=== PATIENT | female | born 1955 | race African-American/Black ===

== ENCOUNTER 2021-05-06 06:42 | Inpatient (IN) | payer MEDICARE ==
[2021-05-03 09:11] LABS: BASOPHILS % 0.5 % (0.0-1.0); EOSINOPHILS # (AUTO) 0.1 (0.0-0.4); EOSINOPHILS % 2.2 % (0.0-6.0); HEMATOCRIT 35.7 % (34.2-44.1); HEMOGLOBIN 10.8 g/dL (12.0-16.0); LYMPHOCYTES # (AUTO) 1.9 (1.0-3.2); LYMPHOCYTES % 29.4 % (18.0-39.1); MEAN CORPUSCULAR HEMOGLOBIN 29.6 pg (28-32); MEAN CORPUSCULAR HGB CONC 30.3 g/dL (31-35); MEAN CORPUSCULAR VOLUME 97.8 fL (81-99); MONOCYTES # (AUTO) 0.5 (0.2-0.8); MONOCYTES % 8.2 % (4.4-11.3); NEUTROPHILS # (AUTO) 3.8 (2.1-6.9); NEUTROPHILS % 59.2 % (38.7-80.0); PLATELET COUNT 232 x10e3/uL (140-360); RED BLOOD COUNT 3.65 x10e6/uL (3.6-5.1)
[2021-05-03 09:33] LABS: ANION GAP 12.7 mmol/L (8-16); CALCIUM 8.9 mg/dL (8.4-10.2); CREATININE, SERUM 1.17 mg/dL (0.57-1.11); POTASSIUM 4.7 mmol/L (3.5-5.1)
[~2021-05-06] VITALS: Ht 165.1 cm; Wt 121.6 kg
[~2021-05-06 06:42] MED LIST: ASPIRIN81 MG PO; COREG12.5 MG PO; HYDRALAZINE HCL25 MG PO; ISOSORBIDE MONO30 MG PO; LASIX40 MG PO; LIPITOR10 MG PO; LOSARTAN POTASS25 MG PO; NITROGLYCERIN0.4 MG SL; OMEPRAZOLE40 MG PO; SODIUM CHLORIDE 0.9% 50ML 100 ML ONE; SPIRONOLACTONE25 MG PO; VITAMIN D PO; tylenol arthritis PO
[2021-05-06] MEDS ORDERED: BUPIVACAINE 0.25% 30ML SDV ONE (06:47)
[2021-05-06] MEDS ORDERED: ONDANSETRON HCL INJ 2MG/ML 2ML 2 MG/ML VIAL ONE (08:59)
[2021-05-06] MEDS ORDERED: METOCLOPRAMIDE HCL 10 MG/2ML VIAL ONE (08:59)
[2021-05-06] MEDS ORDERED: HYDRALAZINE HCL 20 MG/ML VIAL ONE (09:28)
[2021-05-06] MEDS ORDERED: FENTANYL CITRATE/PF 100MCG/2 ML INJ ONE (09:42)
[2021-05-06 10:39] VITALS: BP 182/74
[2021-05-06 11:07] VITALS: BP 182/74
[2021-05-06] MEDS ORDERED: LACTATED RINGER'S 1,000 ML INJ SCH (11:15)
[2021-05-06] MEDS ORDERED: SCOPOLAMINE 1.5 MG PATCH TOP ONE (11:15)
[2021-05-06] MEDS: HYDROMORPHONE 1MG/1ML INJ IV PRN ×5 (11:25→22:15)
[2021-05-06] MEDS: ONDANSETRON HCL INJ 2MG/ML 2ML 2 MG/ML VIAL IV PRN (11:27)
[2021-05-06] MEDS: CARVEDILOL 12.5 MG TAB PO SCH ×2 (12:00→22:02)
[2021-05-06] MEDS: HYDRALAZINE HCL 25 MG TAB PO SCH ×2 (12:00→22:02)
[2021-05-06] MEDS: LOSARTAN POTASSIUM 25 MG TAB PO SCH ×2 (12:01→22:02)
[2021-05-06 12:18] VITALS: BP 201/90
[2021-05-06 16:07] VITALS: BP 193/89
[2021-05-06] MEDS ORDERED: CLONIDINE HCL 0.1 MG TAB PO ONE (16:15)
[2021-05-06 19:30] VITALS: BP 211/88
[2021-05-06] MEDS ORDERED: FUROSEMIDE INJ 10 MG/ML 4 ML VIAL IV ONE (19:30)
[2021-05-06 20:10] VITALS: BP 211/88
[2021-05-06] MEDS: ENOXAPARIN SOD INJ 40 MG/0.4 ML SYR SC SCH (22:02)
[2021-05-06] MEDS ORDERED: CLONIDINE HCL 0.1 MG TAB PO PRN (22:45)
[2021-05-07 00:36] VITALS: BP 160/78
[2021-05-07] MEDS: HYDROMORPHONE 1MG/1ML INJ IV PRN ×3 (01:14→08:14)
[2021-05-07 05:16] VITALS: BP 145/88
[2021-05-07 06:27] LABS: BASOPHILS % 0.2 % (0.0-1.0); HEMOGLOBIN 11.4 g/dL (12.0-16.0); LYMPHOCYTES # (AUTO) 1.1 (1.0-3.2); LYMPHOCYTES % 9.5 % (18.0-39.1); MEAN CORPUSCULAR HEMOGLOBIN 29.8 pg (28-32); MEAN CORPUSCULAR HGB CONC 30.8 g/dL (31-35); MEAN CORPUSCULAR VOLUME 96.6 fL (81-99); MONOCYTES # (AUTO) 0.9 (0.2-0.8); MONOCYTES % 7.6 % (4.4-11.3); NEUTROPHILS # (AUTO) 9.4 (2.1-6.9); NEUTROPHILS % 82.2 % (38.7-80.0); PLATELET COUNT 258 x10e3/uL (140-360); RED BLOOD COUNT 3.83 x10e6/uL (3.6-5.1); RED CELL DISTRIBUTION WIDTH 12.8 % (11.7-14.4)
[2021-05-07 07:12] LABS: ALBUMIN 3.6 g/dL (3.5-5.0); ALBUMIN/GLOBULIN RATIO 0.8 (0.8-2.0); ANION GAP 15.8 mmol/L (8-16); CALCIUM 9.2 mg/dL (8.4-10.2); CREATININE, SERUM 1.07 mg/dL (0.57-1.11); POTASSIUM 3.8 mmol/L (3.5-5.1)
[2021-05-07 07:27] LABS: MAGNESIUM 1.7 MG/DL (1.3-2.1); PHOSPHORUS 3.8 MG/DL (2.3-4.7)
[2021-05-07 07:54] VITALS: BP 159/83
[2021-05-07 07:57] VITALS: BP 159/83
[2021-05-07] MEDS: CARVEDILOL 12.5 MG TAB PO SCH (08:14)
[2021-05-07] MEDS: ONDANSETRON HCL INJ 2MG/ML 2ML 2 MG/ML VIAL IV PRN (08:14)
[2021-05-07] MEDS: ENOXAPARIN SOD INJ 40 MG/0.4 ML SYR SC SCH (08:15)
[2021-05-07] MEDS: HYDRALAZINE HCL 25 MG TAB PO SCH (08:15)
[2021-05-07] MEDS: LOSARTAN POTASSIUM 25 MG TAB PO SCH (08:15)
[2021-05-07] MEDS ORDERED: HYDROCODONE/APAP 7.5MG-325MG 1 EA TAB PO PRN (10:15)
== END 2021-05-07 11:40 | disposition home or self-care (01) | DRG 620 ==
LOC: OR 06:42 → PACU V 09:15 → MED/SURG 10:14
PROVIDERS: ADMIT Internal Medicine; ATTEND Internal Medicine
PROC: 0DB64Z3 Excision of Stomach, Percutaneous Endoscopic Approach, Vertical (ICD-10-PCS; principal; 2021-05-06 07:00)
DX: E66.01 Morbid (severe) obesity due to excess calories (principal); I50.22 Chronic systolic (congestive) heart failure; I13.0 Hypertensive heart and chronic kidney disease with heart failure and stage 1 through stage 4 chronic kidney disease, or unspecified chronic kidney disease; Z68.41 Body mass index [BMI] 40.0-44.9, adult; I25.10 Atherosclerotic heart disease of native coronary artery without angina pectoris; Z95.5 Presence of coronary angioplasty implant and graft; Z20.822 Contact with and (suspected) exposure to COVID-19; N18.30 Chronic kidney disease, stage 3 unspecified; K21.9 Gastro-esophageal reflux disease without esophagitis; E55.9 Vitamin D deficiency, unspecified
CPT/HCPCS: 36415; 71046; 80048; 80053; 83735; 84100; 85025; 93005; J0360; J0690; J1170; J1650; J1940; J2405; J2765; J3010; J7121; U0002